=== PATIENT | female | born 1990 | race Caucasian/White ===

== ENCOUNTER 2024-01-06 08:59 | Emergency (ER) | payer OTHER, SELFPAY ==
[2024-01-06 09:06] VITALS: BP 123/80; PULSE 66; RESP 14; TEMP 37.1; O2SAT 99
--- NOTE | 2024-01-06 09:35 | ED.SKABFB ---
HPI - Skin/Abscess/Foreign Bdy General Chief complaint: Skin/Abscess/Foreign Body Stated complaint: left forearm tattoo is red Time Seen by Provider: 01/06/24 09:27 Source: patient and RN notes reviewed Mode of arrival: ambulatory Limitations: no limitations History of Present Illness HPI narrative: Patient presents today requesting evaluation of her new tattoo of the left forearm. Patient got it placed 4 days ago and was concerned that it may be infected. Denies pain. She has been applying lotion and washing with antibacterial soap twice daily. She pulled off a tiny scab a couple of days ago and is concerned because there is a tiny area of redness. Related Data Home Medications Medication Instructions Recorded Confirmed bupropion HCl (smoking deter) 150 mg PO 01/06/24 mg tablet,12 hr sustained-release(smoking deterrent) nystatin 100,000 unit/mL oral 01/06/24 suspension Allergies Allergy/AdvReac Type Severity Reaction Status Date / Time No Known Allergies Allergy Unverified 08/07/12 14:47 Review of Systems Review of Systems: CONSTITUTIONAL: Denies body aches, fever, chills, or sweats. EYES: Denies visual changes, redness, or discharge. ENT: Denies rhinorrhea, congestion, sore throat, or otalgia. CARDIOVASCULAR: Denies chest pain, palpitations, or edema. RESPIRATORY: Denies cough or dyspnea. GASTROINTESTINAL: Denies abdominal pain, nausea, vomiting, or diarrhea. GENITOURINARY: Denies dysuria or hematuria. SKIN: + new tattoo to left forearm MUSCULOSKELETAL: Denies back pain, joint pain, or myalgia. NEUROLOGIC: Denies headache, numbness, tingling, or weakness. PSYCH: Denies depression or anxiety. [facility] Social History Social History Alcohol intake: never Substance use type: marijuana Comments At time of signature, I have reviewed and agree with nursing past medical, surgical, social and family history unless otherwise noted. Please see nursing chart for further information. There is no relevant family history pertinent to the presenting complaint Exam Narrative: GENERAL: Well-appearing, well-nourished, and in no acute distress. HEAD: Normocephalic, atraumatic. EYES: EOMI. No redness or drainage. Conjunctivae normal. ENT: Mucous membranes pink and moist. NECK: Normal AROM. CHEST: No respiratory distress. EXTREMITIES: Normal range of motion. No edema. SKIN: Warm, dry, no rash. Capillary refill normal. Normal skin turgor. Approximately 5 x 7 cm sq tattoo to the left anterior forearm. The tattoo seems to be healing well without edema, erythema, drainage. There is a punctate area of erythema inside the tattoo that seems to be where a scab was removed. NEURO: No focal deficits. Alert and oriented x3. Gait steady. PSYCH: Normal affect. No signs of depression or anxiety. Course Course Level of Care: Express Care Visit Vital Signs Vital signs: Vital Signs Temperature 98.7 F 01/06/24 09:06 Pulse Rate 66 01/06/24 09:06 Respiratory Rate 14 01/06/24 09:06 Blood Pressure 123/80 01/06/24 09:06 Pulse Oximetry 99 01/06/24 09:06 Oxygen Delivery Room Air 01/06/24 09:06 Temperature 98.7 F 01/06/24 09:06 Pulse Rate 66 01/06/24 09:06 Respiratory Rate 14 01/06/24 09:06 Blood Pressure 123/80 01/06/24 09:06 Pulse Oximetry 99 01/06/24 09:06 Oxygen Delivery Room Air 01/06/24 09:06 Reviewed MDM - Skin/Abscess/Foreign Bdy MDM Narrative Medical decision making narrative: Tattoo seems to be healing well. Will prescribe patient some mupirocin to place in the small area of redness on the inside of the tattoo. Discussed care instructions regarding moisturizing and cleaning. Patient agrees with plan. Anticipatory guidance given. Differential Diagnosis Differential diagnosis: Likely cellulitis, impetigo and contact dermatitis Critical Care Time Critical Care Time Critical Care T
== END 2024-01-06 09:49 | disposition home or self-care (01) ==
PROVIDERS: Emergency Provider Nurse Practitioner; PCP Nurse Practitioner
DX: L81.8 Other specified disorders of pigmentation (principal); F12.90 Cannabis use, unspecified, uncomplicated
CPT/HCPCS: 99203; G0463